=== PATIENT | female | born 1995 | race American Indian/Alaskan Native ===

== ENCOUNTER 2017-05-23 11:12 | Emergency (ER) | payer MEDICAID ==
[2017-05-23 11:43] LABS: Basophils % (Auto) 0.6 % (0.0-1.8); Eosinophils % (Auto) 0.3 % (0.0-4.3); Hematocrit 39.9 % (30.3-42.9); Hemoglobin 13.5 gm/dl (10.1-14.3); Mean Corpuscular HGB Conc 34 % (30-34); Mean Corpuscular Hemoglobin 31 pg (28-32); Mean Corpuscular Volume 91 fl (79-97); Platelet Count 205 K/mm3 (140-440); Red Blood Count 4.41 M/mm3 (3.65-5.03); Red Cell Distribution Width 13.1 % (13.2-15.2); White Blood Count 8.2 K/mm3 (4.5-11.0)
[2017-05-23 12:03] LABS: Alanine Aminotransferase 7 units/L (7-56); Albumin 4.6 g/dL (3.9-5); Albumin/Globulin Ratio 1.9 %; Alkaline Phosphatase 63 units/L (35-129); Anion Gap 21 mmol/L; BUN/Creatinine Ratio 13; Blood Urea Nitrogen 9 mg/dL (7-17); Calcium 9.2 mg/dL (8.4-10.2); Carbon Dioxide 22 mmol/L (22-30); Chloride 97.8 mmol/L (98-107); Glucose 86 mg/dL (65-100); Lipase 19 units/L (13-60); Potassium 3.3 mmol/L (3.6-5.0); Sodium 137 mmol/L (137-145)
[2017-05-23 14:33] LABS: Bilirubin,Urine NEG (Negative); Blood,Urine NEG (Negative); Ketones,Urine TR mg/dL (Negative); Leukocyte Esterase,Urine LG (Negative); Mucus,Urine FEW /HPF; Nitrite,Urine NEG (Negative); Protein,Urine <15 mg/dL mg/dL (Negative)
[2017-05-23] MEDS ORDERED: K-DUR PO ONE (16:50)
[2017-05-23] MEDS ORDERED: TYLENOL PO ONE (16:57)
--- NOTE | 2017-05-23 16:57 | Emergency Department Report ---
ED General Adult HPI - General Chief complaint: Abdominal Pain Stated complaint: ABDOMINAL PAIN Time Seen by Provider: 05/23/17 16:50 Source: patient, EMS (ems notes not available at time of chart dictation), RN notes reviewed Mode of arrival: Wheelchair Limitations: No Limitations - History of Present Illness Initial comments: This is a 22-year-old female who was previously unknown to this provider. She presents to the ER with a complaint of abdominal cramping and discomfort. The pain does not radiate anywhere. He does not have exacerbating or relieving factors. Of note, the patient also presents for medical clearance, she presented after taking one half tablet of a prescription supplement, adipex, in the morning, to help her with work. She reports that she felt somewhat weak. She is not homicidal or suicidal. Her weakness has resolved. -: Gradual, week(s) Radiation: abdomen Severity scale (0 -10): 5 Quality: aching Consistency: intermittent Improves with: none Worsens with: none Associated Symptoms: loss of appetite, weakness. denies: confusion, chest pain , cough - Related Data Previous Rx's Medication Instructions Recorded Last Taken Type Acetaminophen [Tylenol Extra 500 mg PO Q6HR PRN #30 tablet 05/23/17 Unknown Rx Strength] Ondansetron [Zofran Odt] 4 mg PO Q8HR PRN #20 tab.rapdis 05/23/17 Unknown Rx Allergies Allergy/AdvReac Type Severity Reaction Status Date / Time Penicillins Allergy Hives Verified 05/23/17 11:23 ED Review of Systems ROS: Stated complaint: ABDOMINAL PAIN Other details as noted in HPI Constitutional: malaise. denies: fever Eyes: denies: eye discharge ENT: denies: epistaxis Respiratory: denies: cough Cardiovascular: denies: chest pain Gastrointestinal: abdominal pain Genitourinary: denies: dysuria Neurological: weakness Psychiatric: denies: homicidal thoughts, suicidal thoughts ED Past Medical Hx - Past Medical History Previous Medical History?: No - Surgical History Past Surgical History?: No - Social History Smoking Status: Current Every Day Smoker Substance Use Type: None - Medications Home Medications: Home Medications Medication Instructions Recorded Confirmed Last Taken Type Acetaminophen [Tylenol Extra 500 mg PO Q6HR PRN #30 tablet 05/23/17 Unknown Rx Strength] Ondansetron [Zofran Odt] 4 mg PO Q8HR PRN #20 tab.lynndis 05/23/17 Unknown Rx ED Physical Exam - General Limitations: No Limitations General appearance: alert, in no apparent distress - Head Head exam: Present: atraumatic, normocephalic - Eye Eye exam: Present: normal appearance, PERRL, EOMI, other (visual acuity intact to finger counting, color perception, reading at a close distance). Absent: nystagmus - ENT ENT exam: Present: normal exam, normal orophraynx, mucous membranes moist, normal external ear exam - Neck Neck exam: Present: normal inspection, full ROM - Respiratory Respiratory exam: Present: normal lung sounds bilaterally. Absent: respiratory distress, wheezes, rales, rhonchi, stridor, chest wall tenderness - Cardiovascular Cardiovascular Exam: Present: regular rate, normal rhythm, normal heart sounds. Absent: bradycardia, tachycardia, systolic murmur, diastolic murmur, rubs, gallop - GI/Abdominal GI/Abdominal exam: Present: soft, normal bowel sounds. Absent: distended, tenderness, rebound, hyperactive bowel sounds, hypoactive bowel sounds, organomegaly, mass, bruit, pulsatile mass - External exam: Present: normal external exam Speculum exam: Present: normal speculum exam. Absent: cervical discharge, vaginal bleeding Bi-manual exam: Present: normal bi-manual exam, other (escorted by nurse Deedee Hayward). Absent: cervical motion tendernes, adnexal tenderness, adnexal mass, uterine enlargement, uterine tenderness - Extremities Exam Extremities exam: Present: normal inspection, full ROM, normal capillary refill. Absent: pedal edema, joint swelling, calf tenderness - Back Exam Back exam: Present: normal inspection, full ROM. Absent: tenderness, CVA tenderness (R), CVA tenderness (L), muscle spasm, paraspinal tenderness, vertebral tenderness - Neurological Exam Neurological exam: Present: alert, oriented X3, normal gait, other (Extraocular movements intact. Tongue midline. No facial droop. Facial sensation intact to light touch in the V1, V2, V3 distribution bilaterally. 5 and 5 strength in 4 extremities.. Sensation is intact to light touch in 4 extremities.). Absent : motor sensory deficit - Psychiatric Psychiatric exam: Present: anxious. Absent: homicidal ideation, suicidal ideation - Skin Skin exam: Present: warm, dry, intact, normal color. Absent: rash ED Course Vital Signs 05/23/17 05/23/17 05/23/17 11:16 13:19 13:21 Temperature 98.7 F Pulse Rate 71 74 75 Respiratory 18 16 Rate Blood Pressure 136/82 129/83 Blood Pressure 129/83 [Right] O2 Sat by Pulse 100 100 100 Oximetry 05/23/17 05/23/17 05/23/17 15:19 15:20 16:42 Temperature 98.6 F Pulse Rate 72 78 67 Respiratory 18 Rate Blood Pressure 137/81 Blood Pressure 137/81 [Right] O2 Sat by Pulse 99 99 Oximetry 05/23/17 05/23/17 05/23/17 16:46 17:00 17:15 Temperature Pulse Rate 68 68 91 H Respiratory 14 15 17 Rate Blood Pressure 107/72 115/77 121/84 Blood Pressure [Right] O2 Sat by Pulse Oximetry 05/23/17 05/23/17 17:30 18:24 Temperature 98.2 F Pulse Rate 98 H 69 Respiratory 20 14 Rate Blood Pressure 115/77 Blood Pressure 107/72 [Right] O2 Sat by Pulse 100 Oximetry ED Medical Decision Making - Lab Data Result diagrams: 05/23/17 11:26 05/23/17 11:26 Vital Signs 05/23/17 05/23/17 05/23/17 11:16 13:19 15:19 Temperature 98.7 F 98.6 F Pulse Rate 71 74 72 Respiratory 18 16 18 Rate Blood Pressure 136/82 Blood Pressure 129/83 137/81 [Right] O2 Sat by Pulse 100 100 99 Oximetry Lab Results 05/23/17 05/23/17 05/23/17 Range/Units 11:26 11:26 14:10 WBC 8.2 (4.5-11.0) K/mm3 RBC 4.41 (3.65-5.03) M/mm3 Hgb 13.5 (10.1-14.3) gm/dl Hct 39.9 (30.3-42.9) % MCV 91 (79-97) fl MCH 31 (28-32) pg MCHC 34 (30-34) % RDW 13.1 L (13.2-15.2) % Plt Count 205 (140-440) K/mm3 Lymph % (Auto) 39.4 H (13.4-35.0) % [place] % (Auto) 5.8 (0.0-7.3) % Eos % (Auto) 0.3 (0.0-4.3) % Baso % (Auto) 0.6 (0.0-1.8) % Lymph # 3.2 (1.2-5.4) K/mm3 [place] # 0.5 (0.0-0.8) K/mm3 Eos # 0.0 (0.0-0.4) K/mm3 Baso # 0.0 (0.0-0.1) K/mm3 Seg Neutrophils % 53.9 (40.0-70.0) % Seg Neutrophils # 4.4 (1.8-7.7) K/mm3 Sodium 137 (137-145) mmol/L Potassium 3.3 L (3.6-5.0) mmol/L Chloride 97.8 L (98-107) mmol/L Carbon Dioxide 22 (22-30) mmol/L Anion Gap 21 mmol/L BUN 9 (7-17) mg/dL Creatinine 0.7 (0.7-1.2) mg/dL Estimated GFR > 60 ml/min BUN/Creatinine Ratio 13 % Glucose 86 (65-100) mg/dL Calcium 9.2 (8.4-10.2) mg/dL Total Bilirubin 0.90 (0.1-1.2) mg/dL AST 13 (5-40) units/L ALT 7 (7-56) units/L Alkaline Phosphatase 63 (35-129) units/L Total Protein 7.0 (6.3-8.2) g/dL Albumin 4.6 (3.9-5) g/dL Albumin/Globulin Ratio 1.9 % Lipase 19 (13-60) units/L Urine Color Yellow (Yellow) Urine Turbidity Clear (Clear) Urine pH 6.0 (5.0-7.0) Ur Specific [place] 1.009 (1.003-1.030) Urine Protein <15 mg/dl (Negative) mg/dL Urine Glucose (UA) Neg (Negative) mg/dL Urine Ketones Tr (Negative) mg/dL Urine Blood Neg (Negative) Urine Nitrite Neg (Negative) Ur Reducing Substances Not Reportable Urine Bilirubin Neg (Negative) Urine Ictotest Not Reportable Urine Urobilinogen 2.0 (<2.0) mg/dL Ur Leukocyte Esterase Lg (Negative) Urine WBC (Auto) 22.0 H (0.0-6.0) /HPF Urine RBC (Auto) 4.0 (0.0-6.0) /HPF U Epithel Cells (Auto) 4.0 (0-13.0) /HPF Urine Mucus Few /HPF Urine HCG, Qual Negative (Negative) - Medical Decision Making Differential diagnosis, including but not limited to: Pelvic inflammatory disease, urinary tract infection, constipation, anxiety, panic attack, medication side effects Assessment and plan: 21-year-old female with a primary complaint of lower abdominal pain for 2 weeks. She has no tenderness, rebound or guarding, and she has no gynecologic tenderness either. There are no urinary symptoms, and there is no pelvic pain or pelvic discharge. Given the aforementioned, and given that patient has been having symptoms for 2 weeks, I do not see an indication for emergent imaging at this time. Given lack of vaginal symptoms and gynecologic symptoms, given lack of gynecologic tenderness, pelvic inflammatory disease is unlikely. Patient indicates that she took the medication, adipex, one half tablet at 9:00 in the morning as a stimulant, to help her out with work. She is neither homicidal nor suicidal, she does not require 1013 at this time. Patient observed in the ER for approximately 6 hours without decompensation, her neurologic examination is unremarkable, and she was able to tolerate liquid feeds, there does not appear to be an emergent condition at this time, and the patient will be discharged. Critical care attestation.: If time is entered above; I have spent that time in minutes in the direct care of this critically ill patient, excluding procedure time. ED Disposition Clinical Impression: Lower abdominal pain Disposition: DC-01 TO HOME OR SELFCARE Is pt being admited?: No Does the pt Need Aspirin: No Condition: Stable Instructions: Abdominal Pain (ED) Additional Instructions: Cultures were sent today. Results will be available in the next 3-5 days. have a primary care doctor or business english instructor contact the medical records department to obtain culture results. Follow up with the primary care doctor within the next week. Return to the ER right away with new pain, worsened pain , migration of pain, fevers, chills, lethargy, irritability, projectile vomiting , change in mental status, inability to tolerate liquid feeds, confusion. Make certain to eat 3 meals a day, avoid consumption of stimulants and medications that were not prescribed few, and make certain to wear appropriate clothing if being in a very hot or very cold environment. Prescriptions: Acetaminophen [Tylenol Extra Strength] 500 mg PO Q6HR PRN #30 tablet PRN Reason: Pain Ondansetron [Zofran Odt] 4 mg PO Q8HR PRN #20 tab.rapdis PRN Reason: Nausea Referrals: PRIMARY CARE, [Primary Care Provider] - 3-5 Days KATELYN LABOY MD [Staff Physician] - 3-5 Days [facility] [Provider Group] - 3-5 Days Forms: Accompanied Note, Work/School Release Form(ED)
[2017-05-23 18:24] VITALS: BP 107/72
== END 2017-05-23 18:25 | disposition home or self-care (01) ==
LOC: ED 11:12
DX: R10.30 Lower abdominal pain, unspecified (principal); F17.200 Nicotine dependence, unspecified, uncomplicated; Z88.0 Allergy status to penicillin
CPT/HCPCS: 36415; 80053; 81001; 81025; 83690; 85025; 87210; 87591